=== PATIENT | female | born 1970 | race Caucasian/White ===

== ENCOUNTER 2018-03-06 16:28 | Emergency (ER) | payer OTHER ==
[2018-03-06 16:37] VITALS: BMI 27.3
[2018-03-06 16:40] VITALS: O2SAT 96
[2018-03-06] MEDS ORDERED: Sodium Chloride 0.9% 1,000 ML IV ONE (16:58)
[2018-03-06] MEDS ORDERED: Sodium Chloride 0.9% 1,000 ML ONE (17:08)
--- NOTE | 2018-03-06 17:09 | C.PDOC ---
History Of Present Illness Patient is a 47 year old female who is c/o generalized body aches, cough which began 1 week ago and fever which has been intermittent for 3 days. Patient states her cough is productive of clear phlegm and her fever is usually worse at night. Patient finds slight relief after taking Mucinex. She reports Tmax of 103F this afternoon and took Tylenol. Patient denies nausea, vomiting, or sick contacts at home. Patient has history of [place] Palsy. She denies history of smoking or drinking. Patient has family history of Asthma and HTN. 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 denies: Nausea, Vomiting Additional History Per: Patient Past Medical History Reviewed: Historical Data, Nursing Documentation, Vital Signs Vital Signs: Last Vital Signs Temp 98.1 F 03/06/18 16:37 Pulse 85 03/06/18 16:37 Resp 18 03/06/18 16:37 BP 107/72 03/06/18 16:37 Pulse Ox 96 03/06/18 18:28 - Medical History PMH: No Chronic Diseases Surgical History: No Surg Hx Family History: States: Hypertension Other Family History: asthma - Social History Hx Tobacco Use: No Hx Alcohol Use: No Hx Substance Use: No - Immunization History Hx Tetanus Toxoid Vaccination: No Hx Influenza Vaccination: No Hx Pneumococcal Vaccination: No Review Of Systems Constitutional: Positive for: Fever Respiratory: Positive for: Cough, Sputum (clear ) Musculoskeletal: Positive for: Other (generalized body aches ) Physical Exam - Physical Exam Appears: Non-toxic, No Acute Distress Skin: Normal Color, Warm, Dry Head: Atraumatic, Normacephalic Eye(s): bilateral: Normal Inspection, EOMI Ear(s): Bilateral: Normal Nose: Discharge Oral Mucosa: Moist Tongue: Normal Appearing Lips: Normal Appearing Throat: Erythema, No Exudate Neck: Supple Chest: Symmetrical, No Deformity, No Tenderness Cardiovascular: Rhythm Regular, No Murmur Respiratory: No Rales, Rhonchi (to left lung base ), No Wheezing Gastrointestinal/Abdominal: Normal Exam, Bowel Sounds, Soft, No Tenderness Rectal: Deferred Back: Normal Inspection Extremity: Normal ROM, Capillary Refill (less than 2 seconds ) Extremity: Bilateral: Atraumatic Neurological/Psych: Oriented x3, Normal Speech, Normal Cognition, Normal Motor, Normal Sensation ED Course And Treatment - Laboratory Results Result Diagrams: 03/06/18 17:18 03/06/18 17:18 O2 Sat by Pulse Oximetry: 96 (on RA) Pulse Ox Interpretation: Normal Medical Decision Making Medical Decision Making: Impression: cough Differential diagnoses include but are not limited to: Pneumonia vs Bronchitis vs Influenza Plan: * bloodwork * CXR * Influenza A/B * IV Fluids * reassess and disposition Progress: Bloodwork, CXR and Influenza A/B swab ordered and reviewed. IV Fluids administered. 6:47 PM - Pt is influenza positive. Pt feels better. Will d/c home. Disposition Counseled Patient/Family Regarding: Studies Performed, Diagnosis, Need For Followup, Rx Given - Disposition Disposition: HOME/ ROUTINE Disposition Time: 18:23 Condition: STABLE Additional Instructions: Ms. Mallory, thank you for letting us take care of you today. Return to the ER if your symptoms worsen. Take the medication listed below as prescribed. Follow up at your clinic at [place] next week for a re-evaluation. Take acetaminophen (Tylenol) or ibuprofen (Advil, Motrin) for you fever and pain. Prescriptions: Oseltamivir Phosphate [Tamiflu] 1 tab PO BID #10 capsule Instructions: Flu, Adult (DC) Forms: [facility] ([place]), General Discharge Instructions Print Language: [place] CITIZ[place] - POA Present On Arrival: None - Clinical Impression Clinical Impression: Influenza B - Scribe Statement The provider has reviewed the documentation as recorded by the Scribe (Luz Sharp) Provider Attestation: All medical record entries made by the Scribe were at my direction and personally dictated by me. I have reviewed the chart and agree that the record accurately reflects my personal performance of the history, physical exam, medical decision making, and the department course for this patient. I have also personally directed, reviewed, and agree with the discharge instructions and disposition.
[2018-03-06 17:31] LABS: BASO % 0.4 % (0.0-2.0); EOS # 0.1 K/uL (0.0-0.7); EOS % 2.5 % (0.0-4.0); LYMPH # 2.2 K/uL (1.0-4.3); LYMPH % 51.7 % (20.0-40.0); MEAN CORPUSCULAR HEMOGLOBIN 24.1 pg (27.0-31.0); MEAN CORPUSCULAR HGB CONC 32.8 g/dL (33.0-37.0); MEAN PLATELET VOLUME 8.2 fL (7.2-11.7); MONO # 0.7 K/uL (0.0-0.8); MONO % 16.1 % (0.0-10.0); NEUT # 1.3 K/uL (1.8-7.0); NEUT % 29.3 % (50.0-75.0); NRBC % 0.1 % (0.0-2.0); RBC 5.58 Mil/uL (3.80-5.20); RED CELL DISTRIBUTION WIDTH 15.3 % (11.5-14.5); WHITE BLOOD COUNT 4.3 K/uL (4.8-10.8)
[2018-03-06 17:32] LABS: HEMOGLOBIN 13.4 g/dL (11.0-16.0); MEAN CELL VOLUME 73.4 fL (81.0-99.0)
[2018-03-06 17:36] LABS: ALT/SGPT 36 U/L (9-52); AST/SGOT 49 U/L (14-36); BLOOD UREA NITROGEN 8 mg/dL (7-17); CALCIUM 8.4 mg/dl (8.6-10.4); GFR AFRICAN-AMERICAN > 60; GFR NON-AFRICAN AMERICAN > 60
--- NOTE | 2018-03-06 17:47 | RAD ---
HISTORY: Cough r/o pneumonia COMPARISON: Comparison is made to 04/03/2012 TECHNIQUE: Chest PA and lateral FINDINGS: LUNGS: No active pulmonary disease. PLEURA: No significant pleural effusion identified. No pneumothorax apparent. CARDIOVASCULAR: Normal. OSSEOUS STRUCTURES: No significant abnormalities. VISUALIZED UPPER ABDOMEN: Normal. OTHER FINDINGS: None. IMPRESSION: No radiographic evidence of pneumonia.
[2018-03-06 18:50] VITALS: BP 101/65; PULSE 64; RESP 20; TEMP 98.8
== END 2018-03-06 19:18 | disposition home or self-care (01) ==
LOC: C.ER 16:28
DX: J10.1 Influenza due to other identified influenza virus with other respiratory manifestations (principal)
CPT/HCPCS: 71046; 80053; 85025; 87040; 87149; 87205; 87804; 96374; 99284; J1885; J7040